=== PATIENT | female | born 1960 | race Caucasian/White ===

== ENCOUNTER 2018-01-26 06:02 | Day surgery (SDC) | payer OTHER ==
[2018-01-26] MEDS ORDERED: PROPOFOL 80 ML (07:39)
[2018-01-26] MEDS ORDERED: LIDOCAINE 2% (SDV) 5 ML INJ (07:39)
== END 2018-01-26 10:08 | disposition home or self-care (01) ==
LOC: GIL 06:02
DX: Z12.11 Encounter for screening for malignant neoplasm of colon (principal); D12.0 Benign neoplasm of cecum; D12.5 Benign neoplasm of sigmoid colon; K64.4 Residual hemorrhoidal skin tags; R12 Heartburn
CPT/HCPCS: 43239; 88305